=== PATIENT | female | born 1995 | race Caucasian/White ===

== ENCOUNTER → 2024-11-08 10:31 | Outpatient (CLI) | payer OTHER, SELFPAY ==
[2024-11-08 11:14] LABS: Add Manual Diff / Slide Review NO; Basophils Absolute Auto 0 /uL (0-100); Eosinophils Absolute Auto 200 /uL (0-450); Eosinophils Percent Auto 5.5 % (2-4); Hematocrit 39.2 % (36-46); Hemoglobin 13.4 g/dL (12.0-16.0); Lymphocytes Absolute Auto 800 /uL (1100-4500); Lymphocytes Percent Auto 18.8 % (25-40); Mean Corpuscular HGB Conc 34.2 % (30-36); Mean Corpuscular Hemoglobin 29.6 PG (26-34); Mean Corpuscular Volume 86.5 fL (80-100); Monocytes Absolute Auto 300 /uL (0-900); Monocytes Percent Auto 7.7 % (3-14); Neutrophils Absolute Auto 2900 /uL (1500-7000); Platelet Count 195 X10^3/uL (150-400); Red Blood Cell Count 4.53 X10^6/uL (4.0-5.2); Red Cell Distribution Width 13.7 % (11.6-14.8); White Blood Cell Count 4.4 X10^3/uL (4.5-11.0)
[2024-11-08 11:18] LABS: Prothrombin Time 11.8 SECONDS (9.4-12.5)
[2024-11-08 11:32] LABS: HEMOLYSIS < 15 (0-50); Iron 34 ug/dL (37-170)
[2024-11-08 11:37] LABS: Alanine Aminotransferase 39 IU/L (<35); Albumin 4.7 g/dL (3.5-5.0); Alkaline Phosphatase 54 U/L (38-126); Aspartate Aminotransferase 33 IU/L (14-36); BUN Creatinine Ratio 18.2 (6-22); Bilirubin Total 0.5 mg/dL (0.2-1.3); Blood Urea Nitrogen 16 mg/dL (7-17); Calcium 9.6 mg/dL (8.4-10.2); Carbon Dioxide 27 mmol/L (22-32); Chloride 104 mmol/L (98-107); Estimated Glomerular Filt Rate > 60 mL/min (>60); Globulin 2.4 g/dL (1.7-4.1); Glucose 92 mg/dL (70-99); HEMOLYSIS < 15 (0-50); Potassium 4.3 mmol/L (3.4-5.1); Sodium 138 mmol/L (137-145); Total Protein 7.1 g/dL (6.3-8.2)
[2024-11-08 11:40] LABS: Hemoglobin A1C% w Est Avg Glu 4.7 % (4.0-6.0)
[2024-11-08 11:44] LABS: Percent Iron Saturation 9 % (15-50); Total Iron Binding Capacity 381 ug/dL (265-497); Transferrin 308 mg/dL (206-381)
[2024-11-08 11:51] LABS: Prolactin 10.4 ng/mL (3.0-18.6)
[2024-11-08 11:52] LABS: Follicle Stimulating Hormone 4.25 mIU/mL
[2024-11-08 12:05] LABS: TSH w/ Reflex to FT4 3.18 uIU/mL (0.47-4.68)
[2024-11-08 12:09] LABS: Ferritin 22 ng/mL (6-137)
== END ==
PROVIDERS: PCP Family Medicine; Referring Provider Family Medicine; Visit Provider Family Medicine
DX: N92.1 Excessive and frequent menstruation with irregular cycle (principal); F32.A Depression, unspecified; N94.6 Dysmenorrhea, unspecified
CPT/HCPCS: 36415; 80053; 82728; 83001; 83036; 83540; 83550; 84146; 84443; 85025; 85610

== ENCOUNTER → 2024-11-11 09:08 | Outpatient (CLI) | payer OTHER, SELFPAY ==
[2024-11-11 10:23] LABS: Luteinizing Hormone 4.04 mIU/mL
[2024-11-13 15:36] LABS: Factor VIII Activity, Clotting 109 % (56-140); Von Willebrand Factor Antigen 96 % (50-200); von Willebrand Factor Activity 69 % (50-200)
== END ==
PROVIDERS: PCP Family Medicine; Referring Provider Family Medicine; Visit Provider Family Medicine
DX: N92.1 Excessive and frequent menstruation with irregular cycle (principal)
CPT/HCPCS: 36415; 83002; 84402; 84403; 85240; 85245; 85246